=== PATIENT | male | born 1940 | race Caucasian/White ===

== ENCOUNTER 2016-10-09 06:44 | Day surgery (SDC) | payer MEDICARE, MEDICAID ==
[~2016-10-09] VITALS: Ht 172.7 cm; Wt 99.3 kg
[~2016-10-09 06:44] MED LIST: ASPIRIN 81M81 MG/TA2 PO; ASPIRIN E.C. 8181 MG PO; B-12 500 MCG PO; CARDIZEM 60MG T60 MG PO; CARTIA XT120 MG PO; CENTRUM SILVER1 TA3 PO; CENTRUM SILVER1 TAB PO; CIPRO 500MG TA500 MG PO; COLACE 100100 MG/CAP PO; COUMADIN 3MG3 MG/TAB PO; CRESTOR 10MG10 MG PO; ELIQUIS 5MG PO; FERROUS SULFATE65 MG PO; FOLIC ACID 40400 MCG PO; LOPRESSOR 225 MG/TAB PO; LOPRESSOR100 MG PO; MULTAQ400 MG PO; MULTI VITAMINS1 TAB PO; NATURAL POTASS595 MG PO; NORCO 325 MG-7.1 TAB PO; PERCOCET 325 MG1 TA2 PO; POTASSIUM; POTASSIUM99 MG PO; PREDNISONE20 MG PO; PROAIR HFA0.09 MG/AC IH; ROXICODONE 55 MG/TAB PO; VITAMIN B12500 MCG PO; VITAMIN C500 MG PO
[2016-10-09] MEDS ORDERED: CARTIA XT240 MG PO (07:17)
[2016-10-09] MEDS ORDERED: CALCIUM-MAGNES1 EAC1 PO (07:20)
[2016-10-09 07:28] VITALS: BP 134/80; PULSE 66; TEMP 97.3
[2016-10-09] MEDS ORDERED: NORCO 325 MG-51 TAB PO (09:50)
[2016-10-09 10:33] VITALS: BP 148/80; PULSE 64; TEMP 97.8
[2016-10-09 10:45] VITALS: BP 112/78; PULSE 64
[2016-10-09 11:00] VITALS: BP 117/63; PULSE 60
[2016-10-09 11:15] VITALS: BP 110/52; PULSE 62
[2016-10-09 11:30] VITALS: BP 152/75; PULSE 66
== END 2016-10-09 11:55 | disposition home or self-care (01) ==
LOC: SDCO 06:44
DX: K43.2 Incisional hernia without obstruction or gangrene (principal)
CPT/HCPCS: C1781; J0690; J1100; J2405; J2704; J3010; J7120

== ENCOUNTER 2018-02-24 13:38 | Emergency (ER) | payer MEDICARE, MEDICAID ==
[~2018-02-24] VITALS: Ht 172.7 cm; Wt 90.9 kg
[~2018-02-24 13:38] MED LIST changes: +CALCIUM-MAGNES1 EAC1 PO; +CARTIA XT240 MG PO; +NORCO 325 MG-51 TAB PO
[2018-02-24 13:43] VITALS: BP 130/72; TEMP 98.1
[2018-02-24] MEDS ORDERED: PRINIVIL10 MG PO (14:00)
[2018-02-24 15:01] VITALS: PULSE 75
== END 2018-02-24 15:03 | disposition home or self-care (01) ==
LOC: COL.ER 13:38
DX: M70.21 Olecranon bursitis, right elbow (principal); I10 Essential (primary) hypertension; E78.5 Hyperlipidemia, unspecified; Z85.46 Personal history of malignant neoplasm of prostate; Z87.891 Personal history of nicotine dependence; Z79.82 Long term (current) use of aspirin

== ENCOUNTER 2019-06-28 10:06 | Inpatient (IN) | payer MEDICARE, MEDICAID ==
[~2019-06-28] VITALS: Ht 172.7 cm; Wt 99.9 kg
[~2019-06-28 10:06] MED LIST changes: +PRINIVIL10 MG PO
[2019-06-28 11:09] VITALS: BP 124/78; PULSE 97
[2019-06-28 11:29] LABS: BASO % 0.3 % (0.0-2.0); EOS % 0.1 % (0-4.0); GRAN % 84.2 % (42.2-75.2); HEMATOCRIT 46.2 % (42.0-52.0); HEMOGLOBIN 15.9 g/dl (13.5-18.0); LYMPH # 0.9 (1.2-3.4); MEAN CELL VOLUME 86 fl (80.0-100.0); MEAN CORPUSCULAR HEMOGLOBIN 29 pg (27.0-31.0); MEAN CORPUSCULAR HGB CONC 34 g/dl (33.0-37.0); MEAN PLATELET VOLUME 10.1 fl (7.4-10.4); MONO # 0.6 (0.1-0.6); MONO % 5.9 % (1.7-9.3); PLATELET COUNT 296 K/mm3 (130-400); REDCELL DISTRIBUTION WIDTH-CV 12.7 % (11.5-14.5)
[2019-06-28 11:37] LABS: ALANINE AMINOTRANSFERASE 27 U/L (21-72); ALBUMIN 4.8 gm/dL (3.5-5.0); ALKALINE PHOSPHATASE 38 U/L (50-136); ANION GAP 11 mmol/L (7-16); AST,SGOT 27 U/L (15-37); BLOOD UREA NITROGEN 23 mg/dL (9-20); CALCIUM 10.2 mg/dL (8.4-10.2); CARBON DIOXIDE 31 mmol/L (22-30); CHLORIDE 94 mmol/L (98-107); CREATININE, serum 1.47 (0.66-1.25); GLUCOSE 129 mg/dL (74-106); LIPASE 78 U/L (23-300); POTASSIUM 4.4 mmol/L (3.4-5.0); SODIUM 136 mmol/L (137-145); TOTAL PROTEIN 8.3 gm/dL (6.4-8.2)
[2019-06-28 11:38] LABS: PARTIAL THROMBOPLASTIN TIME 31.1 SECONDS (26.0-37.0)
[2019-06-28 11:40] LABS: C-REACTIVE PROTEIN < 0.5 mg/dL (0.0-0.9)
[2019-06-28 11:47] LABS: TROPONIN-I < 0.012 ng/mL (0.000-0.035)
[2019-06-28 13:18] LABS: COLLECTION METHOD CLEAN CATCH
[2019-06-28 13:30] LABS: MUCOUS Present /lpf; PH 8 (5-8); SQUAMOUS EPITHELIAL 0-2 /hpf; URINE APPEARANCE Hazy; URINE BACTERIA None Seen /hpf; URINE BILIRUBIN Negative (NEGATIVE); URINE BLOOD Negative (NEGATIVE); URINE COLOR Yellow; URINE GLUCOSE Negative (NEGATIVE); URINE KETONE Negative (NEGATIVE); URINE LEUKOCYTE ESTERASE Negative (NEGATIVE); URINE NITRATE Negative (NEGATIVE); URINE PROTEIN(semi-quant) 2+ (NEGATIVE); URINE UROBILINOGEN Negative (NEGATIVE)
--- NOTE | 2019-06-28 14:50 | NUR ---
PATIENT ADMITED INTO ROOM 321-2 FROM ER WITH SBO. PATIENT CURRENTLY DENIES PAIN OR N/V. BOWL SOUNDS PRESENT X4 QUADS. PATIENT REPORTS BM YESTERDAY AND SMALL HARD STOOL IN ER TODAY. PATIENT WAS POSITIVE FOR ORTHOSTATIC HYPOTENSION. RIGHT AC IV TO INT. CLEAR LIQUID DIET ORDERED. PATIENT HAS CARDIAC HX. TELE INPLACE. VSS. HEAD TO TOE ASSESSMENT WNL. FAMILY AT BEDSIDE.
--- NOTE | 2019-06-28 15:00 | NUR ---
HOSPITALIST PA AT BEDSIDE. SEE ORDERS.
[2019-06-28] MEDS ORDERED: ELIQUIS 5MG PO (15:05)
[2019-06-28 15:49] VITALS: BP 130/72; PULSE 104; TEMP 99.6
[2019-06-28 20:00] VITALS: BP 131/73; PULSE 94; TEMP 97.3
--- NOTE | 2019-06-28 21:00 | NUR ---
PATIENT IN BED, DENIES PAIN. HAS DISTENDED ABDOMEN WITH ACTIVE BOWEL SOUNDS. DENIES NAUSEA. TAKING CLEAR LIQUIDS. IVF INFUSING TO RIGHT AC WITHOUT REDNESS OR SWELLING. VOIDING WITHOUT PROBLEM.
[2019-06-29] VITALS: BP 115/64; PULSE 77; TEMP 97.9
[2019-06-29 03:30] VITALS: BP 127/71; PULSE 76; TEMP 97.9
[2019-06-29 06:01] LABS: BASO # 0.1 (0.0-0.2); BASO % 0.4 % (0.0-2.0); EOS # 0.1 (0.0-0.7); EOS % 0.7 % (0-4.0); GRAN # 8.1 (1.4-6.5); GRAN % 72.9 % (42.2-75.2); LYMPH # 1.9 (1.2-3.4); LYMPH % 17.3 % (20.0-51.0); MEAN CELL VOLUME 87 fl (80.0-100.0); MEAN CORPUSCULAR HEMOGLOBIN 30 pg (27.0-31.0); MEAN CORPUSCULAR HGB CONC 34 g/dl (33.0-37.0); MEAN PLATELET VOLUME 10.2 fl (7.4-10.4); MONO # 0.9 (0.1-0.6); MONO % 8.3 % (1.7-9.3); PLATELET COUNT 223 K/mm3 (130-400); RED BLOOD COUNT 4.36 M/mm3 (4.20-5.60); REDCELL DISTRIBUTION WIDTH-CV 12.8 % (11.5-14.5)
[2019-06-29 06:14] LABS: CREATININE, serum 1.3 (0.66-1.25); POTASSIUM 4.4 mmol/L (3.4-5.0)
[2019-06-29 06:21] LABS: CREATININE, serum 1.3 (0.66-1.25); FRACTIONAL EXCRETION OF NA+ 0.5 %
--- NOTE | 2019-06-29 06:25 | NUR ---
Collected random urine and lab in to draw labs for this AM. No N/V this shift. No stools this shift.
--- NOTE | 2019-06-29 06:30 | NUR ---
Report given from mini shifter to day shift. ERNESTO Anderson is the primary nurse. Report received from primary nurse. Pt hand off accepted. Will continue to monitor-ERNESTO GARIBAY, Celina Hernandez.
[2019-06-29 07:00] VITALS: BP 124/67; PULSE 73; TEMP 98
--- NOTE | 2019-06-29 10:15 | NUR ---
PATIENT HAD A LARGE BM
--- NOTE | 2019-06-29 10:54 | NUR ---
Pt request PRN pain medication for 9/10 on numeric pain scale. Pain is located on lower back. Pt states a sharp pain. Releif with movement. Pt sitting up right in recliner. Will continue to monitor. ERNESTO GARIBAY, Celina Hernandez.
--- NOTE | 2019-06-29 11:55 | NUR ---
ROUNDEMERY. SEE ORDERS.
[2019-06-29 12:20] VITALS: BP 132/66; PULSE 77; TEMP 98.5
--- NOTE | 2019-06-29 12:48 | NUR ---
Per primary nurse IV fluids disconnected. Pt tolerated well. Will continue to monitor-LANI,RN, Celina Hernandez
--- NOTE | 2019-06-29 13:25 | NUR ---
Pt up walking. No complaints of pain or discomfort. Pt back in room in recliner watching tv. No needs at this time. Will continue to monitor. LANI aGming, RN
--- NOTE | 2019-06-29 13:27 | NUR ---
Pt resting in bed with eyes closed. No needs at this time. Pt hand off to primary nurse. LANI Medina, RN
--- NOTE | 2019-06-29 14:42 | NUR ---
VALDEZ met with the patient to discuss discharge plan. The patient lives alone in [place]. He states that his son, Сергей (ph#[phone]), lives [place] of [place]. He reports independence with ADLs and has a cane and walker. The patient's PCP is Dr. Jean-Claude Saleh and he receives his medications at [facility]. He reports no difficulties obtaining his meds. The patient does not have advanced directives completed, but he was interested in obtaining a form for DPOA-HC. VALDEZ provided. The patient plans to return home upon discharge. No additional needs at this time.
[2019-06-29 15:45] VITALS: BP 130/74; PULSE 69; TEMP 98.2
--- NOTE | 2019-06-29 19:30 | NUR ---
Patient has approx. 100cc of emesis (undigested food).
[2019-06-29 20:00] VITALS: BP 125/58; PULSE 71; TEMP 98.2
--- NOTE | 2019-06-29 20:40 | NUR ---
Medicated with Zofran 4mg IVP now for persistent nausea. No further emesis.
--- NOTE | 2019-06-29 21:10 | NUR ---
Dr Caballero here, reported the emesis earlier. New order for clear liquids.
--- NOTE | 2019-06-29 23:45 | NUR ---
Spoke with Dr Caballero regarding patients continued nausea and abdominal pain. New order for Morphine 2mg IV q2hrs PRN pain.
--- NOTE | 2019-06-29 23:48 | NUR ---
Medicated with Morphine 2mg IVP at this time.
[2019-06-30] VITALS (7 sets, daily range): BP systolic 117–137; BP diastolic 40–73; PULSE 69–94; TEMP 97.5–99
--- NOTE | 2019-06-30 02:11 | NUR ---
Has large amount of emesis, brown/green, no obvious blood noted. Medicated with Morphine 2mg IVP and Zofran 4mg IVP at this time.
--- NOTE | 2019-06-30 02:18 | NUR ---
Patient's abdomen much softer after emesis.
--- NOTE | 2019-06-30 06:00 | NUR ---
Patient has rested well since last dose of Morphine at 0215. No further emesis.
[2019-06-30 06:53] LABS: BASO % 0.3 % (0.0-2.0); EOS % 0.1 % (0-4.0); GRAN # 9.5 (1.4-6.5); GRAN % 84.7 % (42.2-75.2); HEMATOCRIT 37.8 % (42.0-52.0); HEMOGLOBIN 12.9 g/dl (13.5-18.0); LYMPH # 0.6 (1.2-3.4); LYMPH % 5.6 % (20.0-51.0); MEAN CELL VOLUME 88 fl (80.0-100.0); MEAN CORPUSCULAR HEMOGLOBIN 30 pg (27.0-31.0); MEAN CORPUSCULAR HGB CONC 34 g/dl (33.0-37.0); MEAN PLATELET VOLUME 10.4 fl (7.4-10.4); MONO % 9.1 % (1.7-9.3); PLATELET COUNT 207 K/mm3 (130-400); RED BLOOD COUNT 4.32 M/mm3 (4.20-5.60); REDCELL DISTRIBUTION WIDTH-CV 12.6 % (11.5-14.5)
[2019-06-30 07:00] LABS: CALCIUM 8.7 mg/dL (8.4-10.2); CREATININE, serum 1.19 (0.66-1.25)
--- NOTE | 2019-06-30 07:00 | NUR ---
awake resting in bed, bedside shift report received from ERNESTO Saldivar
--- NOTE | 2019-06-30 08:00 | NUR ---
sitting up on side of bed having clear liquids, states had broth and it went well, had some sips of water and then had nausea and felt he could throw up, instructed to go slow then with the liquids, he still feels like he needs to have a bowel movement and asking about an enema, explained we would wait and talk with Dr when he makes rounds, verbalizes understanding, full assessment completed,
--- NOTE | 2019-06-30 08:29 | NUR ---
0825- in to see Pt. Pt to have bowet rest. Pt agrees. Pt resting in bed with call light within reach. Will continue to monitor-LANI Gaming,RN
--- NOTE | 2019-06-30 08:39 | NUR ---
have reviewed assessment completed by student RN, in agreement with that assessment except I feel abdomen is rounded/obese but it is soft and patient feels this is his normal, Dr Caballero in to see patient and plan of care explained to him, will hold off on all po intake today
--- NOTE | 2019-06-30 08:45 | NUR ---
assisted into bathroom and will try to have bowel movement
--- NOTE | 2019-06-30 09:05 | NUR ---
0900-pt ambulating in all.Tolerated well. pt back to room after abmulation restig in bed. Will continue to monitor-LANI Gaming,RN
--- NOTE | 2019-06-30 09:06 | NUR ---
out of bathroom and was unable to have bowel movement, ambulating in castro with student RN
--- NOTE | 2019-06-30 09:37 | NUR ---
Dr Vail and care team in to see patient
--- NOTE | 2019-06-30 10:36 | NUR ---
Initial visit; Patient thanked Seat Cover Cutter for looking in on him and offering God's blessings.
--- NOTE | 2019-06-30 11:36 | NUR ---
assisted up to bathroom, states he has been up 2 other times and had bowel movements and now had another mod amount of brown semi formed stool, back to bed, states he is already feeling better
--- NOTE | 2019-06-30 13:03 | NUR ---
Pt up for ambulation at 1245. pt tolerateld well. Stating the back pain is not present at the time. Pt tolerated ambulation well. Pt backt to room sitting on bed with no other needs at this time. Report given to primary nurse. LANI Gaming,RN
--- NOTE | 2019-06-30 13:48 | NUR ---
resting in bed, denies needs
--- NOTE | 2019-06-30 16:01 | NUR ---
appears to be sleeping, in bed with lights off, eyes closed, resp quiet and easy
--- NOTE | 2019-06-30 16:14 | NUR ---
awake now and asking for water, explained to him Dr Caballero didn't want him to have anythng to eat or drink until tomorrow, will provide few ice chips
--- NOTE | 2019-06-30 17:40 | NUR ---
appears to be sleeping, in bed with lights off, eyes closed, resp quiet and easy
--- NOTE | 2019-06-30 18:12 | NUR ---
bedside shift report given to ERNESTO Mcginnis
--- NOTE | 2019-06-30 19:30 | NUR ---
Pt. sitting up in bed watching TV at this time. Pt. is A&OX3, assessment complete. IV to rt. ac patent, IV fluids infusing per orders. Pt. reports that he has had some Bowel movements and feels much better. Pt. denies pain or other needs, call light within reach.
[2019-07-01 06:47] LABS: BASO % 0.4 % (0.0-2.0); EOS # 0.1 (0.0-0.7); EOS % 2.1 % (0-4.0); GRAN # 4.7 (1.4-6.5); GRAN % 69.1 % (42.2-75.2); LYMPH # 1.2 (1.2-3.4); LYMPH % 17.8 % (20.0-51.0); MEAN CELL VOLUME 88 fl (80.0-100.0); MEAN CORPUSCULAR HGB CONC 34 g/dl (33.0-37.0); MEAN PLATELET VOLUME 10.4 fl (7.4-10.4); MONO # 0.7 (0.1-0.6); MONO % 10.3 % (1.7-9.3); PLATELET COUNT 184 K/mm3 (130-400); RED BLOOD COUNT 3.62 M/mm3 (4.20-5.60); REDCELL DISTRIBUTION WIDTH-CV 12.5 % (11.5-14.5)
[2019-07-01 06:57] LABS: HEMOGLOBIN 10.8 g/dl (13.5-18.0); MEAN CORPUSCULAR HEMOGLOBIN 30 pg (27.0-31.0)
[2019-07-01 07:03] LABS: CALCIUM 7.9 mg/dL (8.4-10.2); CREATININE, serum 1.17 (0.66-1.25); POTASSIUM 3.7 mmol/L (3.4-5.0)
[2019-07-01 07:35] VITALS: BP 120/57; PULSE 59; TEMP 98
--- NOTE | 2019-07-01 08:30 | NUR ---
Patient resting in bed this morning during assessment. Patient reports that he had a bowel movement last night and reports feeling well this morning, he denies nausea or pain. Bowel sounds present in all quadrents. Patient ambulating in hallway independently. Patient denies needs at this time, call light within reach.
[2019-07-01 11:58] VITALS: BP 126/55; PULSE 66; TEMP 98.1
[2019-07-01 16:03] VITALS: BP 134/63; PULSE 62; TEMP 97.4
[2019-07-01] MEDS ORDERED: SENNA-S 50 MG-81 TAB PO (16:16)
[2019-07-01] MEDS ORDERED: MIRALAX PA17 GM/Dose PO (16:17)
--- NOTE | 2019-07-01 17:59 | NUR ---
Discharge teaching completed. Patient instructed to make follow up appointment with primary care within one week. Patient instructed to drink plenty of fluids and picker and sorter load and unload prescriptions form pharmacy, and to take medications as prescribed. Patient denies questions, pain or needs at this time. Patient currently awaiting transportation and will call when they arrive.
== END 2019-07-01 19:21 | disposition home or self-care (01) | DRG 389 ==
LOC: COL.ER 10:06 → SURG 12:52
PROVIDERS: Emergency Medicine; Physician Assistant; ADMIT Student in an Organized Health Care Education/Training Program
DX: K56.609 Unspecified intestinal obstruction, unspecified as to partial versus complete obstruction (principal); K92.0 Hematemesis; N17.9 Acute kidney failure, unspecified; I95.1 Orthostatic hypotension; I10 Essential (primary) hypertension; R05 Cough; E78.5 Hyperlipidemia, unspecified; I48.91 Unspecified atrial fibrillation; M54.9 Dorsalgia, unspecified; Z66 Do not resuscitate
CPT/HCPCS: 99222-AI; 99232-AI; C9113; J2270; J2405; J3010; J7030

== ENCOUNTER 2020-02-29 10:36 | Day surgery (SDC) | payer MEDICARE, MEDICAID ==
[~2020-02-29] VITALS: Ht 170.2 cm; Wt 95.5 kg
[~2020-02-29 10:36] MED LIST changes: +MIRALAX PA17 GM/Dose PO; +SENNA-S 50 MG-81 TAB PO
[2020-02-29] MEDS ORDERED: OMEGA-3 1000 MG1 CAP PO (11:08)
[2020-02-29 11:11] VITALS: BP 139/72; PULSE 91; TEMP 98.2
[2020-02-29 13:46] VITALS: BP 140/71; PULSE 66; TEMP 97.6
--- NOTE | 2020-02-29 13:46 | NUR ---
Pt arrived back to room via cart with AVIATION SAFETY TECHNICIAN, Pat and BUILDING CLEANER. Received report at bedside. Pt is awake, alert, and oriented and pudding and juice brought to him per request. Incision is clean dry and intact and devoid of redness or swelling at this time. Pt denies pain or nausea, and he says he "feels great". He also states he would love to leave as soon as possible. Reviewed goals of discharge with patient and he agrees with plan and expresses understanding of the plan.
[2020-02-29 14:00] VITALS: BP 137/56; PULSE 67
--- NOTE | 2020-02-29 14:00 | NUR ---
Pt sitting comfortably in bed and denies pain or nause at this time. VSS and WNL. Pt is awake, alert, and oriented. Pt was able to finish pudding and juice without any problems. Call light within reach
--- NOTE | 2020-02-29 14:05 | NUR ---
Pt up to bathroom. No problems. Ambulated easily with 1 SBA.
[2020-02-29] MEDS ORDERED: NORCO 325 MG-51 TAB PO (14:09)
[2020-02-29 14:15] VITALS: BP 118/51; PULSE 70
--- NOTE | 2020-02-29 14:15 | NUR ---
Pt ready to go home, and he meets criteria for discharge. VSS and WNL. Reviewed discharge information with pt including signs and symptoms of infection, when to call the dr., educational packet, and instructions from provider. Pt agreees with plan and expresses understanding. Pt's site continues to look CDI without redness or swelling or exudate. Pt's Selwyn tuttle, here.
== END 2020-02-29 14:30 | disposition home or self-care (01) ==
LOC: SDCO 10:36
DX: C15.9 Malignant neoplasm of esophagus, unspecified (principal); E78.5 Hyperlipidemia, unspecified; G47.33 Obstructive sleep apnea (adult) (pediatric); I47.1 Supraventricular tachycardia; R13.10 Dysphagia, unspecified; M17.12 Unilateral primary osteoarthritis, left knee; E66.9 Obesity, unspecified; Z68.33 Body mass index [BMI] 33.0-33.9, adult; M51.36 Other intervertebral disc degeneration, lumbar region; Z90.79 Acquired absence of other genital organ(s); Z85.46 Personal history of malignant neoplasm of prostate; Z86.010 Personal history of colon polyps; Z79.899 Other long term (current) drug therapy; Z79.82 Long term (current) use of aspirin; Z80.9 Family history of malignant neoplasm, unspecified
CPT/HCPCS: C1788; J0690; J1644; J2704; J7120

== ENCOUNTER 2020-03-06 07:10 | Day surgery (SDC) | payer MEDICARE, MEDICAID ==
[~2020-03-06] VITALS: Ht 167.6 cm; Wt 94.6 kg
[~2020-03-06 07:10] MED LIST changes: +OMEGA-3 1000 MG1 CAP PO
[2020-03-06 08:02] VITALS: BP 141/69; PULSE 62; TEMP 97.3
[2020-03-06] MEDS ORDERED: TAMBOCOR 1100 MG/TAB PO (08:11)
[2020-03-06 08:50] VITALS: BP 119/71; PULSE 72; TEMP 97.4
--- NOTE | 2020-03-06 08:50 | NUR ---
PATIENT TRANSPORTED PER CART TO [facility] [place] [facility] ACCOMPANIED BY ENDO NURSE. MONITORS APPLIED. PATIENT ON ROOM AIR SAO2 MAINTAINING AT 95%. PATIENT OCCASIONALLY COUGHS. PATIENT DENIES DISCOMFORT. MONITORS APPLIED. VSS. VERBAL REPORT RECEIVED. 0900 PATIENT SIPS WATER WITHOUT PROBLEMS. PATIENT STATES HE FEELS WATER IN BACK OF THROAT. 09 PATIENT GIVEN APPLE JUICE AND MUFFIN.
[2020-03-06 09:00] VITALS: BP 129/75; PULSE 66
[2020-03-06 09:15] VITALS: BP 131/75; PULSE 64
--- NOTE | 2020-03-06 09:15 | NUR ---
VSS. SAO2 AT 97% ON ROOM AIR. PATIENT DENIES SHORTNESS OF BREATH OR DISCOMFORT. PATIENT EATING AND DRINKING WITHOUT PROBLEMS. PATIENT ALERT AND TALKING TO STAFF.
[2020-03-06 09:30] VITALS: BP 130/67; PULSE 70
--- NOTE | 2020-03-06 09:30 | NUR ---
VSS. PATIENT CONTINUES TO DENY SHORTNESS OF BREATH OR DISCOMFORT. DRANK FLUIDS AND ATE MUFFIN WITHOUT PROBLEMS. IV SITE HEPLOCK. TOTAL FLUID INTAKE 800CC. 0935 PATIENT AMBULATES WITH STAND BY ASSIST TO BATHROOM. PATIENT VOIDS WITHOUT PROBLEMS. STANDBY ASSIST BACK TO CART.
[2020-03-06 09:45] VITALS: BP 136/72; PULSE 69
--- NOTE | 2020-03-06 09:45 | NUR ---
VSS. PATIENT STATES HE IS READY TO GO HOME. PHONE CALL TO FAMILY MEMBER MADE AND FAMILY UPDATED ON PATIENT STATUS.L 0950 DISCHARGE INSTRUCTIONS GIVEN VERBALLY. DISCHARGE PACKET GIVEN TO PATIENT. QUESTIONS ANSWERED AND PATIENT VOICED UNDERSTANDING. [address] CLOTHES[address] 1000 PATIENT TRANSPORTED PER WHEELCHAIR TO CAR. FAMILYMEMBER DRIVING.
== END 2020-03-06 10:00 | disposition home or self-care (01) ==
LOC: SDCO 07:10
DX: C15.9 Malignant neoplasm of esophagus, unspecified (principal); I10 Essential (primary) hypertension; E78.5 Hyperlipidemia, unspecified; M19.90 Unspecified osteoarthritis, unspecified site; Z20.828 Contact with and (suspected) exposure to other viral communicable diseases; Z79.82 Long term (current) use of aspirin; Z85.46 Personal history of malignant neoplasm of prostate; Z96.652 Presence of left artificial knee joint
CPT/HCPCS: J2704; J7120

== ENCOUNTER 2021-08-05 08:50 | Day surgery (SDC) | payer MEDICARE, MEDICAID ==
[~2021-08-05] VITALS: Ht 172.7 cm; Wt 94.2 kg
[~2021-08-05 08:50] MED LIST changes: +TAMBOCOR 1100 MG/TAB PO
[2021-08-05] MEDS ORDERED: CARDIZEM CD 12120 MG PO (09:26)
[2021-08-05 09:33] VITALS: BP 144/76; PULSE 71; TEMP 97.6
[2021-08-05 10:20] VITALS: BP 128/75; PULSE 70
--- NOTE | 2021-08-05 10:20 | NUR ---
Patient returns to [facility] per cart and is awake and alert. IV fluids infusing. Denies difficulty swallowing. Given apple juice to drink. Allowed to rest. Call light in reach.
[2021-08-05 10:35] VITALS: BP 118/75; PULSE 62
--- NOTE | 2021-08-05 10:35 | NUR ---
Eating muffin and drinking water. IV fluids infusing.
[2021-08-05 10:50] VITALS: BP 135/71; PULSE 68
--- NOTE | 2021-08-05 10:50 | NUR ---
Dr. Collier in the room and talks with patient. All questions answered.
--- NOTE | 2021-08-05 10:55 | NUR ---
IV discontinued and site is free of redness or swelling. Patient dresses self.
--- NOTE | 2021-08-05 11:00 | NUR ---
Dismissal instructions given and signed. Voices understanding of these. Taken per wheelchair to vehicle and dismissed to home with instructions in hand.
== END 2021-08-05 11:00 | disposition home or self-care (01) ==
LOC: SDCO 08:50
DX: K22.2 Esophageal obstruction (principal); K22.70 Barrett's esophagus without dysplasia; K44.9 Diaphragmatic hernia without obstruction or gangrene; I10 Essential (primary) hypertension; E78.5 Hyperlipidemia, unspecified; E66.9 Obesity, unspecified; M19.90 Unspecified osteoarthritis, unspecified site; G47.33 Obstructive sleep apnea (adult) (pediatric); Z85.46 Personal history of malignant neoplasm of prostate; Z79.82 Long term (current) use of aspirin; Z79.899 Other long term (current) drug therapy; Z92.21 Personal history of antineoplastic chemotherapy; Z68.34 Body mass index [BMI] 34.0-34.9, adult; Z90.89 Acquired absence of other organs
CPT/HCPCS: C1726; J2704; J7030

== ENCOUNTER 2021-08-29 10:16 | Day surgery (SDC) | payer MEDICARE, MEDICAID ==
[~2021-08-29] VITALS: Ht 172.7 cm; Wt 89.6 kg
[~2021-08-29 10:16] MED LIST changes: +CARDIZEM CD 12120 MG PO
[2021-08-29 11:21] VITALS: BP 138/81; PULSE 77; TEMP 98.1
[2021-08-29 12:55] VITALS: BP 129/76; PULSE 70; TEMP 98.1
--- NOTE | 2021-08-29 12:55 | NUR ---
Back from colonoscopy. Ambulated from cart to chair with steady gait and stsandby assist. VSS. Apple Juice and Blueberry muffin given
[2021-08-29 13:10] VITALS: BP 134/77; PULSE 70; TEMP 98.1
[2021-08-29 13:23] VITALS: BP 138/75; PULSE 63; TEMP 98.1
--- NOTE | 2021-08-29 13:24 | NUR ---
Dr. Bell in to see pt. VSS. INT discontinued intact. Transferred to private car by
== END 2021-08-29 13:25 | disposition home or self-care (01) ==
LOC: SDCO 10:16
DX: Z12.11 Encounter for screening for malignant neoplasm of colon (principal); K57.30 Diverticulosis of large intestine without perforation or abscess without bleeding; E78.5 Hyperlipidemia, unspecified; I10 Essential (primary) hypertension; E66.9 Obesity, unspecified; G47.33 Obstructive sleep apnea (adult) (pediatric); M19.90 Unspecified osteoarthritis, unspecified site; Z86.010 Personal history of colon polyps; Z79.82 Long term (current) use of aspirin; Z79.899 Other long term (current) drug therapy; Z85.46 Personal history of malignant neoplasm of prostate; Z85.01 Personal history of malignant neoplasm of esophagus; Z68.34 Body mass index [BMI] 34.0-34.9, adult; Z90.89 Acquired absence of other organs
CPT/HCPCS: J2704; J7030

== ENCOUNTER 2022-04-09 12:52 | Day surgery (SDC) | payer MEDICARE, MEDICAID ==
[~2022-04-09] VITALS: Ht 177.8 cm; Wt 96.3 kg
[2022-04-09 13:44] VITALS: BP 115/80; PULSE 90; TEMP 97.8
[2022-04-09] MEDS ORDERED: TIROSINT75 MC1 PO (13:56)
[2022-04-09 14:40] VITALS: BP 135/82; PULSE 72; TEMP 97.7
--- NOTE | 2022-04-09 14:40 | NUR ---
PT TO [facility] VIA CART FROM ENDO LAB, WALKED TO CHAIR, AWAKE AND ALERT. CALL LIGHT IN REACH, TAKES SNACK AND DRINK, NO C/O
[2022-04-09] MEDS ORDERED: PROTONIX 40MG T40 MG PO (14:51)
[2022-04-09 14:55] VITALS: BP 145/78; PULSE 75
[2022-04-09 15:10] VITALS: BP 132/75; PULSE 71
--- NOTE | 2022-04-09 15:10 | NUR ---
DR SAUNDERS TALK WITH PT EARLIER. DISCHARGE INST. GIVEN, PT WILL IT SUPPORT ENGINEER NEW RX AND INFORMATION GIVEN. ALSO REVIEWED MODERATE SEDATION PRECAUTIONS AND FOLLOWUP WITH PT, COPY REPORT TO BE SENT TO DR JOHN OFFICE PER DR RODGERS.
--- NOTE | 2022-04-09 15:30 | NUR ---
PT UP AND DRESSED IN ROOM, DISCHARGED VIA W/C TO CAR WITH FRIEND
== END 2022-04-09 15:30 | disposition home or self-care (01) ==
LOC: SDCO 12:52
DX: K22.2 Esophageal obstruction (principal); K31.A0 Gastric intestinal metaplasia, unspecified; K21.01 Gastro-esophageal reflux disease with esophagitis, with bleeding; K22.11 Ulcer of esophagus with bleeding; E66.9 Obesity, unspecified; Z85.01 Personal history of malignant neoplasm of esophagus; Z79.82 Long term (current) use of aspirin
CPT/HCPCS: C1726; J2704; J7030

== ENCOUNTER → 2023-12-16 | Outpatient (CLI) | payer MEDICARE, MEDICAID ==
[~2023-12-16] MED LIST changes: +FLOMAX 0.40.4 MG/CAP PO; +Iohexol 300 - 100 ML VIAL IV ONE; +NATURE'S BLEND600 M2 PO; +NS 100 ML IV SCH; +PROTONIX 40MG T40 MG PO; +STOOL SOFTENER100 M2 PO; +TIROSINT75 MC1 PO; +TRAVEL SICKNESS50 MG PO
== END ==
LOC: COL.RAD 11:52
DX: J84.89 Other specified interstitial pulmonary diseases (principal); R91.1 Solitary pulmonary nodule; C15.4 Malignant neoplasm of middle third of esophagus
CPT/HCPCS: Q9967

== ENCOUNTER 2024-01-28 02:21 | Inpatient (IN) | payer MEDICARE, MEDICAID ==
[~2024-01-28] VITALS: Wt 86.4 kg
[~2024-01-28 02:21] MED LIST changes: -Iohexol 300 - 100 ML VIAL IV ONE; -NS 100 ML IV SCH
[2024-01-28] MEDS ORDERED: NS 1,000 ML IV ONE ×2 (02:45)
[2024-01-28 03:00] LABS: ARTERIAL BLD GAS O2 SATURATION 98.8 % (92-100); ARTERIAL BLD GAS TCO2 CT 19.1; ARTERIAL BLOOD GAS BASE EXCESS -3.6 (-2-2); ARTERIAL BLOOD GAS HCO3 18.3 meq/L (22-26); ARTERIAL BLOOD GAS PCO2 24.9 mmHg (35-45); ARTERIAL BLOOD GAS pH 7.49 (7.35-7.45)
[2024-01-28] MEDS ORDERED: Ondansetron 4 MG/2 ML VIAL IV PRN ×2 (03:00→10:15)
[2024-01-28] MEDS ORDERED: cefTRIAXone 1 G in Water For Injection,Sterile 10 ML IV ONE (03:00)
[2024-01-28 03:01] LABS: ARTERIAL BLOOD GAS PO2 165.4 mmHg (80-100)
[2024-01-28 03:03] LABS: BASO # 0.1 K/mm3 (0.0-0.2); BASO % 0.4 % (0.0-2.0); EOS % 0.1 % (0.0-4.0); GRAN % 86.6 % (42.2-75.2); HEMOGLOBIN 12.9 g/dl (13.5-18.0); LYMPH # 0.6 K/mm3 (1.2-3.4); LYMPH % 4.3 % (20.0-51.0); MEAN CELL VOLUME 87 fl (80.0-100.0); MEAN CORPUSCULAR HEMOGLOBIN 29 pg (27-31); MEAN CORPUSCULAR HGB CONC 33 g/dl (33.0-37.0); MONO # 1.2 K/mm3 (0.1-0.6); MONO % 8.4 % (1.7-9.3); PLATELET COUNT 222 K/mm3 (130-400); RED BLOOD COUNT 4.49 M/mm3 (4.20-5.60); REDCELL DISTRIBUTION WIDTH-CV 18.6 % (11.5-14.5)
[2024-01-28] MEDS ORDERED: NS 500 ML IV ONE (03:30)
--- NOTE | 2024-01-28 03:37 | NUR ---
RT CONTACTED BY TILE SPRAYER REGARDING PT WITH O2 SATS IN THE 70S. PT PLACED ON BIPAP AT 0244. ABG OBTAINED AT 0255. BIPAP ADJUSTMENTS MADE AT 0305 PER ABG. NO NEW ORDERS AT THIS TIME.
[2024-01-28] MEDS ORDERED: fentaNYL 50 MCG/ML 2 ML VIAL IV ONE ×3 (03:45→06:15)
[2024-01-28] MEDS ORDERED: Iohexol 300 - 100 ML VIAL IV ONE (03:48)
[2024-01-28] MEDS ORDERED: NS 50 ML IV ONE (03:49)
[2024-01-28] MEDS ORDERED: Azithromycin 500 MG in NS 250 ML IV ONE (05:00)
[2024-01-28] MEDS ORDERED: Morphine 4 MG/ML VIAL IV PRN ×2 (06:00→10:15)
[2024-01-28] MEDS ORDERED: Albuterol/Ipratropium 3 MG-0.5 MG/3 ML Neb Soln IH PRN (06:00)
[2024-01-28] MEDS ORDERED: NS 1,000 ML IV SCH (06:00)
[2024-01-28] MEDS ORDERED: Doxycycline Hyclate 100 MG in NS 150 ML IV SCH (06:00)
[2024-01-28] MEDS ORDERED: cefTRIAXone 1 G in Water For Injection,Sterile 10 ML IV SCH (06:00)
[2024-01-28] MEDS ORDERED: Acetaminophen 325 MG TAB PO PRN (06:00)
[2024-01-28] MEDS ORDERED: Lidocaine 4% Topical Patch TP ONE (06:00)
[2024-01-28] MEDS ORDERED: fentaNYL 50 MCG/ML 2 ML VIAL IV PRN (06:15)
[2024-01-28] MEDS ORDERED: LORazepam 2 MG/ML 1 ML VIAL IV ONE (06:15)
[2024-01-28] MEDS ORDERED: Sucralfate Susp 1 GM/10 ML UD PO SCH (07:30)
[2024-01-28] MEDS ORDERED: Albuterol/Ipratropium 3 MG-0.5 MG/3 ML Neb Soln IH SCH (08:00)
[2024-01-28 08:49] VITALS: BP 91/56; PULSE 109; TEMP 98.2
[2024-01-28] MEDS ORDERED: Sennosides/Docusate 8.6-50 MG TAB PO SCH (09:00)
--- NOTE | 2024-01-28 09:00 | NUR ---
PT ON THE FLOOR VIA STRETCHER FROM ER, FAMILY AND PERSONAL BELONGINGS AT BEDSIDE. PT REPORTS BACK PAIN 04/25, FAMILY NOTIFIED THAT WE ARE WAITING ON ORDERS FROM HOSPITALIST. INTS TO RIGHT AC AND LEFT HAND PATENT, NS RUNNING AT 125 MLS/HR PER ORDER. LIDOCAINE PATCH TO LOWER BACK IN PLACE. PT ANSWERING QUESTIONS WITH SHORT ANSWERS AND EYES CLOSED. PT ON 6L NASAL CANNULA. PT CHANGED TO GOWN AND FALL RISK ITEMS. PT AND FAMILY DENIES NEEDS. BED IN LOWEST POSITION, CALL LIGHT IN REACH, BED ALARM ON
[2024-01-28] MEDS ORDERED: Scopolamine 1 MG Delivered 3-Day PATCH TD SCH (10:15)
[2024-01-28] MEDS ORDERED: fentaNYL 12 MCG 72 HR PATCH TD SCH (10:15)
[2024-01-28] MEDS ORDERED: LORazepam 2 MG/ML 1 ML VIAL IV PRN (10:15)
[2024-01-28] MEDS ORDERED: LORazepam 1 MG TAB PO PRN (10:15)
[2024-01-28] MEDS ORDERED: Albuterol 0.083% Neb Soln 2.5 MG/3 ML UD IH PRN (10:15)
[2024-01-28] MEDS ORDERED: Glycopyrrolate 0.2 MG/ML 1 ML VIAL IV PRN (10:15)
--- NOTE | 2024-01-28 10:28 | NUR ---
D: Wreath Machine Tender stopped by room on rounds. A: Pt was resting with family in the room. Family was just starting to contact the nurse about pt becoming uncomfortable. No dietary aide needs right now. P: Wreath Machine Tender informed pt's family that if they needed anything from the dietary aide area to let their nurse know. Wreath Machine Tender will follow up as needed.
[2024-01-28] MEDS ORDERED: SYNTHROID0.1 MG/TAB PO (10:54)
[2024-01-28] MEDS ORDERED: MIRALAX510G PO (10:55)
--- NOTE | 2024-01-28 10:55 | NUR ---
FEED CRUSHER OPERATOR CALLED SHEA AND DR. LUND RELATED TO PT SHOWING SIGNS OF DISTRESSED. GOT VERBAL ORDER TO GIVE THE NEXT DOSE OF 2MG IV MORPHINE Q1H EARLY AND TO GIVE PRN 1MG IV ATIVAN NOW WELL EVEN THOUGH PT HAD ORAL ATIVAN APPROXIMATELY 30 MINUTES AGO.
--- NOTE | 2024-01-28 12:20 | NUR ---
ONE ATTEMPT TO PLACE 16FR WILKINS WITH NO SUCCESS, NO URINE NOTED. 14FR COUDE CATHETER WILKINS PLACED WITH ONE ATTEMPT, KENDAL URINE NOTED. BALLOON INFLATED WITH 10MLS FROM KIT AND STAT LOCK IN PLACE TO LEFT THIGH. PT TOLERATED WELL AND REPOSITIONED ON RIGHT SIDE. BED IN LOWEST POSITION, CALL LIGHT IN REACH, BED ALARM ON.
--- NOTE | 2024-01-28 13:51 | NUR ---
fruit worker attended clinical rounding and was informed pt is on comfort care orders. Dr. Rajinder Sanchez is unsure if pt would pass quickly or could discharge somewhere. VALDEZ met with pt and many family members in the room to discuss discharge planning. Сергей, son reports his brother Paulie, is DPOA-HC and not here currently. Family reports pt was living with them in [place]. He sees Dr. Saleh for PCP needs and obtains medications from [facility] with no issues. He was independent with ADLS and used no DME. He typically drives himself around and goes to breakfast each morning. Female in room reports she has a DPOA-HC copy at home and will bring it in when able. SW discussed discharge planning and all hospice options. VALDEZ provided information on [facility] and home with Hospice [facility]. Female in room reports they would like to take pt home with [facility] as she knows someone who works there. VALDEZ advised she will make note of this and follow along for Dr. gardiner. No further questions. Family reports they were not expecting this to happen when they brought him in and did not anticipate this happening. Discharge Plan: home with Hospice / comfort care
--- NOTE | 2024-01-29 01:00 | NUR ---
THE FAMILY CAME TO THE NURSES STATION AND REQUESTED THE LACE FINISHER BE CALLED TO COME AND PRAY OVER THE PATIENT. THE TRUST VAULT CLERK LACE FINISHER WAS CONTACTED AND IS GOING TO COME SEE THE FAMILY AND PATIENT.
--- NOTE | 2024-01-29 02:26 | NUR ---
Data: RN called On-call Business Solutions Architect because Patient is on comfort care. Family desired prayer. Son was sleeping in recliner. [id number] was awake to speak with Business Solutions Architect. DIL had another Son on the phone. DIL recorded prayer on her phone to share with other family members at a later time. Assessment: Anticipatory grief, but with acceptance of end of life. Plan of Care: Business Solutions Architect provided supportive listening and prayer. Chaplains will remain available as needed/requested while Patient is admitted to this hospital.
--- NOTE | 2024-01-29 02:53 | NUR ---
THE PATIENT IS ON COMFORT MEASURES. THE PATIENTS BREATHING IS LABORED. PRN ATIVAN AND MORPHINE PROVIDED PER ORDERS. FAMILY IS AT BEDSIDE. AVAILABLE MEDICATONS FOR COMFORT DISCUSSED WITH THE FAMILY. NEEDS MET AT THIS TIME. WILL MONITOR.
--- NOTE | 2024-01-29 08:00 | NUR ---
Pt. resting with eyes closed respirations shallow and apnic. INT to lt. hand and rt. ac. Shift assessment complete. Pt. is unresponsive and on comfort care measures.
--- NOTE | 2024-01-29 08:29 | NUR ---
Pt.'s family at bedside now. Discussed comfort care measures with the family and DPOA. Pt.'s son Paulie requests to take the O2 off the pt. at this time and give the Morphine and Ativan per orders. Pt.'s family denies further needs.
--- NOTE | 2024-01-29 09:00 | NUR ---
Pt's. family calls this nurse to the bedside. Auscultated for breathsounds and heart beat. No breathsounds or heart beat noted. Dr. Sanchez notified of Pt. passing. Time of per Dr. Sanchez 0900.
--- NOTE | 2024-01-29 09:05 | NUR ---
SW was informed by ERNESTO Mcginnis and Dr. Rajinder Sanchez that pt has . RN informed Block Handler.
--- NOTE | 2024-01-29 09:21 | NUR ---
0915-NOTIFIED MTN OF PATIENT EXPIRATION. SPOKE WITH CHEPE, REFERRAL #[id number]. CHEPE STATED PATIENT IS NOT A CANDIDATE FOR TISSUE OR EYE DONATION AND THAT BODY CAN BE RELEASED TO HOME.
--- NOTE | 2024-01-29 10:09 | NUR ---
Pt. family has left. Post mortem cares provided.
--- NOTE | 2024-01-29 10:21 | NUR ---
0945-F[facility] [place] [facility] FOR PATIENT. HOME NOTIFIED AND SAID THAT THEY WOULD HAVE SOMEONE EN ROUTE SHORTLY. FAMILY OF PATIENT STATED THEY DO NOT WISH TO WAIT FOR HOME TO ARRIVE AND WOULD LIKE TO GO HOME. PATIENT SON, HAZEL, STATED HE WOULD LIKE PATIENT'S DENTURES AND WATCH TO STAY WITH PATIENT.
--- NOTE | 2024-01-29 11:00 | NUR ---
Dara home here at this time to supervisor wet pour pt.'s body. personnel escorted out, watch and dentures sent with pt.
--- NOTE | 2024-01-29 11:33 | NUR ---
Data: Follow-up visit from the on-call visit overnight. More family had arrived. Son Paulie was awake. Family accepted offer of another prayer. Assessment: Family had anticipatory grief; generally acceptance of . Plan of Care: Scroll Saw Operator read [place] 23 and a prayer from the Book of Common Prayer. Prayed for comfort and for peace. Patient has since . Family has left the hospital. Family did express their gratitude for Spiritual Care Services.
[2024-01-31] MEDS ORDERED: fentaNYL Patch Removal/Drugbuster TD SCH (10:15)
== END 2024-01-29 11:00 | disposition expired | DRG 871 ==
LOC: COL.ER 02:21 → MEDICAL 05:42
PROVIDERS: Personal Emergency Response Attendant; ADMIT Internal Medicine
PROC: 5A09357 Assistance with Respiratory Ventilation, Less than 24 Consecutive Hours, Continuous Positive Airway Pressure (ICD-10-PCS; principal; 2024-01-28)
DX: A41.9 Sepsis, unspecified organism (principal); J18.9 Pneumonia, unspecified organism; J96.01 Acute respiratory failure with hypoxia; C15.9 Malignant neoplasm of esophagus, unspecified; Z66 Do not resuscitate; Z51.5 Encounter for palliative care; Z96.652 Presence of left artificial knee joint; I48.91 Unspecified atrial fibrillation; M54.50 Low back pain, unspecified; I10 Essential (primary) hypertension; K21.9 Gastro-esophageal reflux disease without esophagitis; Z79.82 Long term (current) use of aspirin; Z95.818 Presence of other cardiac implants and grafts; Z85.46 Personal history of malignant neoplasm of prostate; Z90.49 Acquired absence of other specified parts of digestive tract; Z79.899 Other long term (current) drug therapy; Z23 Encounter for immunization
CPT/HCPCS: A4314; J0456; J0696; J1650; J2060; J2270; J2405; J2543; J3010; J7030; J7040; J7050; Q9967